=== PATIENT | male | born 1970 | race Caucasian/White ===

== ENCOUNTER 2017-01-13 17:42 | Emergency (ER) | payer BC, OTHER ==
[2017-01-13 18:07] VITALS: BP 144/77
--- NOTE | 2017-01-13 18:16 | UC ---
Throat Pain/Nasal Santana HPI - HPI Summary HPI Summary: Pt presents with c/o of possible Piece of steak" stuck in mid esophagus. Pt reports eating a piece of steak this afternoon and thinks that is is stuck in mid esophagus. Pt states that he has tried to drink water and gingerale after steak getting stuck and states that he "jsut throws it back up". Pt denies difficulty breathing or SOB. - History of Current Complaint Chief Complaint: UCRespiratory Stated Complaint: SWALLOWED MEAT STUCK Time Seen by Provider: 01/13/17 18:08 Hx Obtained From: Patient Onset/Duration: Sudden Onset, Lasting Hours - 7 hours, Still Present Severity: Mild Associated Signs & Symptoms: Positive: Dysphagia, FB Sensation - Allergies/Home Medications Allergies/Adverse Reactions: Allergies Allergy/AdvReac Type Severity Reaction Status Date / Time No Known Allergies Allergy Verified 01/13/17 18:07 PMH/Surg Hx/FS Hx/Imm Hx Previously Healthy: Yes - Surgical History Surgical History: None - Family History Known Family History: Positive: Cardiac Disease - Social History Occupation: Employed Full-time Lives: With Family Alcohol Use: None Substance Use Type: None Smoking Status (MU): Never Smoked Tobacco Have You Smoked in the Last Year: No - Immunization History Most Recent Influenza Vaccination: no Review of Systems Constitutional: Negative Skin: Negative Eyes: Negative ENT: Sore Throat, Other - foreign body sensation Respiratory: Negative Cardiovascular: Negative Gastrointestinal: Negative Genitourinary: Negative Motor: Negative Neurovascular: Negative Musculoskeletal: Negative Neurological: Negative Psychological: Negative All Other Systems Reviewed And Are Negative: Yes Physical Exam Triage Information Reviewed: Yes Appearance: Well-Appearing Vital Signs: Initial Vital Signs Temp 98.3 F 01/13/17 18:01 Pulse 77 01/13/17 18:01 Resp 15 01/13/17 18:01 BP 144/77 01/13/17 18:01 Pulse Ox 98 01/13/17 18:01 Eye Exam: Normal ENT Exam: Normal ENT: Positive: Pharynx normal Neck exam: Normal Respiratory Exam: Normal Cardiovascular Exam: Normal Musculoskeletal Exam: Normal Neurological Exam: Normal Psychological Exam: Normal Skin Exam: Normal Throat Pain/Nasal Course/Dx - Course Course Of Treatment: I discussed withthe pt the need for further evcaluation and testing than what is avaialble at urgent. pt was in no acute distress, no difficulty breathing, no immediate threat of dehydration and was referred to the closest ER. Pt verbalized understanding and agreed to plan of care. - Differential Dx/Diagnosis Differential Diagnosis/HQI/PQRI: Foreign Body, Other - esophageal Provider Diagnoses: possible FB in esophagus. Pt was referred to ER Discharge - Discharge Plan Condition: Stable Disposition: HOME Patient Education Materials: Esophageal Foreign Body (ED) Referrals: [facility] [place] [facility] REFERRAL [Outside] Additional Instructions: You may have a foreign body stuck within your esophagus. It is recommended that you go to the closest Emergency room for further evaluation and treatment. If you do not seek further evaluation, it is suggested that you follow up with PCP as soon as possible.
== END 2017-01-13 18:31 | disposition home or self-care (01) ==
LOC: UCCORT 17:42
DX: T18.128A Food in esophagus causing other injury, initial encounter (principal); X58.XXXA Exposure to other specified factors, initial encounter
CPT/HCPCS: 99211; G0463

== ENCOUNTER 2017-06-10 10:14 | Emergency (ER) | payer SELFPAY ==
[2017-06-10 11:07] VITALS: BP 143/76
--- NOTE | 2017-06-10 11:31 | ED ---
Upper Extremity Pain - HPI Summary HPI Summary: 47 yr old male with the complaint of left index finger pain. Onset of pain was Jun 05. He states he closed his left ring finger in a press at work. He states he had immediate collection of blood under his nail. He is here because any time he bumps the finger he has pain, and he has had swelling as well now to the paronychial fold. No fever or chills. - History of Current Complaint Chief Complaint: UCUpperExtremity Stated Complaint: WC - LEFT HAND INJ Time Seen by Provider: 06/10/17 11:10 - Allergies/Home Medications Allergies/Adverse Reactions: Allergies Allergy/AdvReac Type Severity Reaction Status Date / Time No Known Allergies Allergy Verified 06/10/17 10:56 Home Medications: Home Medications Pantoprazole Sodium [Protonix] 40 mg PO BID 06/10/17 [History Confirmed 06/10/17 ] PMH/Surg Hx/FS Hx/Imm Hx Endocrine/Hematology History: Denies: Hx Diabetes, Hx Thyroid Disease Cardiovascular History: Denies: Hx Hypertension Respiratory History: Denies: Hx Asthma GI History: Denies: Hx Ulcer - Surgical History Surgery Procedure, Year, and Place: esophagus widening 04/2017 Infectious Disease History: No Infectious Disease History: Denies: Hx Clostridium Difficile, Hx Hepatitis, Hx Human Immunodeficiency Virus (HIV), Hx of Known/Suspected MRSA, Hx Shingles, Hx Tuberculosis, Hx Known/ Suspected VRE, Hx Known/Suspected VRSA, History Other Infectious Disease, Traveled Outside the [place] in Last 30 Days - Family History Known Family History: Positive: None, Cardiac Disease - Social History Alcohol Use: None Substance Use Type: Reports: None Smoking Status (MU): Never Smoked Tobacco Have You Smoked in the Last Year: No Review of Systems Constitutional: Negative Positive: Other - left ring finger injury. All Other Systems Reviewed And Are Negative: Yes Physical Exam Triage Information Reviewed: Yes Vital Signs On Initial Exam: Initial Vitals Temp Pulse Resp BP Pulse Ox 97.9 F 68 20 143/76 98 06/10/17 10:58 06/10/17 10:58 06/10/17 10:58 06/10/17 10:58 06/10/17 10:58 Vital Signs Reviewed: Yes Appearance: Positive: Well-Appearing, No Pain Distress Skin: Positive: Warm, Skin Color Reflects Adequate Perfusion Eyes: Positive: EOMI Neck: Positive: Supple Respiratory/Lung Sounds: Positive: Clear to Auscultation, Breath Sounds Present Cardiovascular: Positive: RRR. Negative: Murmur Musculoskeletal: Positive: Other - left ring finger is with sub ungal hematoma, and mild paronychial swelling. Neurological: Positive: Sensory/Motor Intact Psychiatric: Positive: Normal - Tamiment Coma Scale Best Eye Response: 4 - Spontaneous Best Motor Response: 6 - Obeys Commands Best Verbal Response: 5 - Oriented Coma Scale Total: 15 Procedures - Nail Trepanation Nail Trepanation Location: left ring finger Method of Drainage: nail cauterized Sterile Dressing Applied: Yes Finger Splint: No Diagnostics - Vital Signs Vital Signs Temp Pulse Resp BP Pulse Ox 06/10/17 10:58 97.9 F 68 20 143/76 98 - Laboratory Lab Statement: Any lab studies that have been ordered have been reviewed, and results considered in the medical decision making process. Course/Dx - Course Course Of Treatment: 47 yr old male with subungal hematoma and significant relief after nail trephenation. Xray neg. Plan DC home on keflex. Referral to Ortho hand for follow up. - Diagnoses Provider Diagnoses: Subungual hematoma of digit of hand, Paronychia of finger, Hypertension Discharge - Discharge Plan Condition: Good Disposition: HOME Prescriptions: Cephalexin CAP* [Keflex CAP*] 500 mg PO QID #40 cap Patient Education Materials: Subungual Hematoma (ED), Paronychia (ED), Hypertension (ED) Forms: *Work Release Referrals: Angelito Isaac [Primary Care Provider] - 2 Days Estefani Callaway MD [Medical Doctor] - Keith Morris MD [Medical Doctor] -
--- NOTE | 2017-06-10 11:49 | RAD ---
Indication: Left finger injury. 3 views of left middle finger demonstrates no fracture. No other bone or joint abnormality is identified. IMPRESSION: No fracture of the left middle finger is noted.
== END 2017-06-10 12:15 | disposition home or self-care (01) ==
LOC: UCCORT 10:19
DX: L03.012 Cellulitis of left finger (principal); S60.122A Contusion of left index finger with damage to nail, initial encounter; W31.1XXA Contact with metalworking machines, initial encounter; Y92.9 Unspecified place or not applicable
CPT/HCPCS: 17250; 73140; 99212; G0463